=== PATIENT | female | born 1985 | race Caucasian/White ===

== ENCOUNTER 2023-02-01 20:47 | Emergency (ER) | payer MEDICAID ==
[~2023-02-01] VITALS: Ht 144.8 cm; Wt 77.0 kg
[2023-02-01 20:49] VITALS: BP 102/58
[2023-02-01] MEDS ORDERED: FAMOTIDINE 20MG/2ML VIAL IV STA (21:50)
[2023-02-01] MEDS ORDERED: SODIUM CHLORIDE 0.9% 1,000 ML IV ONE (22:00)
[2023-02-01] MEDS ORDERED: PROCHLORPERAZINE 10MG/2ML VIAL IV ONE (22:00)
[2023-02-01] MEDS ORDERED: DIPHENHYDRAMINE 50MG/ML VIAL IV ONE (22:00)
[2023-02-01] MEDS ORDERED: ACETAMINOPHEN 325MG TABLET PO ONE (22:00)
[2023-02-01 23:07] LABS: BASOPHILS % 0.3 % (0.0-2.0); EOSINOPHILS % 1.1 % (0.0-5.0); HEMATOCRIT. 37.7 % (36.0-48.0); LYMPHOCYTES % 17.8 % (20.0-50.0); MEAN CORPUSCULAR HEMOGLOBIN 30.3 pg (28.0-32.0); MEAN CORPUSCULAR VOLUME 87.7 fL (81.0-99.0); MEAN PLATELET VOLUME 8.3 fl (7.4-10.4); MONOCYTES % 5.6 % (2.0-8.0); NEUTROPHILS % 75.2 % (40.0-76.0); PLATELET 309 x1000/uL (130-400); RED CELL DISTRIBUTION WIDTH 13.8 % (11.6-14.6)
[2023-02-01 23:13] LABS: CHLORIDE 104 mEq/L (98-107)
[2023-02-01 23:17] LABS: INR 0.9; PROTHROMBIN TIME 9.9 sec (9.6-11.0)
[2023-02-02] MEDS ORDERED: PROCHLORPERAZINE 10MG/2ML VIAL IV NR (01:00)
[2023-02-02] MEDS ORDERED: ACETAMINOPHEN 325MG TABLET PO NR (01:00)
[2023-02-02] MEDS ORDERED: FAMOTIDINE 20MG/2ML VIAL IV NR (01:00)
[2023-02-02] MEDS ORDERED: DIPHENHYDRAMINE 50MG/ML VIAL IV NR (01:00)
[2023-02-02 01:20] LABS: CLARITY URINE CLEAR (CLEAR); COLOR URINE YELLOW (YELLOW); KETONES URINE NEGATIVE (NEGATIVE); OCCULT BLOOD URINE NEGATIVE (NEGATIVE); PH URINE 6.5 (4.5-8.0); PROTEIN URINE NEGATIVE (NEGATIVE); SPECIFIC GRAVITY URINE 1.013 (1.005-1.030)
[2023-02-02 01:21] LABS: LEUKOCYTE ESTERASE URINE NEGATIVE (NEGATIVE); NITRITE URINE NEGATIVE (NEGATIVE); UROBILINOGEN URINE 0.2 E.U./dL (0.2-1.0)
[2023-02-02] MEDS ORDERED: DOXY1TAB3 MT (01:52)
== END 2023-02-02 03:57 | disposition home or self-care (01) ==
LOC: ER 20:47
DX: O26.892 Other specified pregnancy related conditions, second trimester (principal); R11.2 Nausea with vomiting, unspecified; I49.9 Cardiac arrhythmia, unspecified; Z3A.17 17 weeks gestation of pregnancy
CPT/HCPCS: 36415; 80053; 81003; 83690; 85025; 85610; 93005; 99284; J0780; J1200; J3490; J7030; 96361; 96374; 96375